=== PATIENT | female | born 1970 ===

== ENCOUNTER 2016-11-24 10:45 | Outpatient (CLI) | payer OTHER ==
--- NOTE | 2016-11-24 12:03 | DIAGNOSTIC IMAGING REPORT ---
PROCEDURE: CT ABD/PELVIS WITH CONTRAST CLINICAL INDICATION: Left lower quadrant pain x 3 days. Initial encounter. TECHNIQUE: 125 ml. of Isovue 300 were injected intravenously and axial images were obtained of the entire abdomen and pelvis with sagittal and coronal reformations. COMPARISON: CT abdomen/pelvis 03/21/2016 FINDINGS: ABDOMEN: Lung bases are clear. Heart size is normal. Liver, gallbladder, pancreas, spleen, adrenal glands and the kidneys are normal. Mild atherosclerosis of the aorta. Mild diverticulosis of the colon. Nonspecific bowel gas pattern. There is a some fluid in the cecum. PELVIS: Normal appendix. Mild sigmoid diverticulosis. Mid sigmoid suture ring. Left lower quadrant herniorrhaphy. 3.6 cm right ovarian cyst. Mild dextroconvex scoliosis and degenerative changes. IMPRESSION: 1. Mild diverticulosis without diverticulitis 2. Midsigmoid suture line 3. Fluid in the cecum which may represent enterocolitis 4. 3.6 cm right ovarian cyst 5. Left lower quadrant herniorrhaphy 6. Results discussed with RADHA Juarez All CT scans at this facility use dose modulation, iterative reconstruction, and/or weight-based dosing when appropriate to reduce radiation dose to as low as reasonably achievable.
== END 2016-11-24 23:00 | disposition home or self-care (01) ==
LOC: CT SRH 10:45
DX: R10.32 Left lower quadrant pain (principal); N83.209 Unspecified ovarian cyst, unspecified side; Z98.890 Other specified postprocedural states

== ENCOUNTER 2016-11-27 13:39 | Outpatient (CLI) | payer OTHER ==
--- NOTE | 2016-11-27 15:38 | DIAGNOSTIC IMAGING REPORT ---
PROCEDURE: US COMPLETE PELVIC W/TRANSVAG INDICATION: PELVIC PAIN TECHNIQUE: Transabdominal and endovaginal cabral scale and color Doppler sonographic images of the female pelvis were obtained. COMPARISON: Pelvic ultrasound dated 03/21/2016 FINDINGS: TRANSABDOMINAL SCANS: The uterus is of normal size 4.7 x 3.9 x 3.2 cm Kidneys are normal. TRANSVAGINAL SCANS: The uterus is anteverted. Myometrium contains a 2.3 cm fibroid posteriorly in the midline. The endometrium measures 4.3 mm. Right ovary is normal measuring 4.2 x 4.2 x 2.4 cm. There is a 3.4 centimeter cyst on the right ovary. The left ovary is normal measuring 2.7 x 1.4 x 1.1 cm. Nabothian cyst are noted on the cervix. The largest [id number] mm. IMPRESSION: 1. 3.4 cm simple right ovarian cyst 2. Two left ovarian cysts have resolved. 3. 2.3 cm fibroid in the myometrium.
--- NOTE | 2016-11-27 15:38 | DIAGNOSTIC IMAGING REPORT ---
PROCEDURE: US COMPLETE PELVIC W/TRANSVAG INDICATION: PELVIC PAIN TECHNIQUE: Transabdominal and endovaginal cabral scale and color Doppler sonographic images of the female pelvis were obtained. COMPARISON: Pelvic ultrasound dated 03/21/2016 FINDINGS: TRANSABDOMINAL SCANS: The uterus is of normal size 4.7 x 3.9 x 3.2 cm Kidneys are normal. TRANSVAGINAL SCANS: The uterus is anteverted. Myometrium contains a 2.3 cm fibroid posteriorly in the midline. The endometrium measures 4.3 mm. Right ovary is normal measuring 4.2 x 4.2 x 2.4 cm. There is a 3.4 centimeter cyst on the right ovary. The left ovary is normal measuring 2.7 x 1.4 x 1.1 cm. Nabothian cyst are noted on the cervix. The largest [id number] mm. IMPRESSION: 1. 3.4 cm simple right ovarian cyst 2. Two left ovarian cysts have resolved. 3. 2.3 cm fibroid in the myometrium.
== END 2016-11-27 23:00 ==
LOC: US SRH 13:39
DX: N83.291 Other ovarian cyst, right side (principal); D26.1 Other benign neoplasm of corpus uteri